=== PATIENT | male | born 1990 | race Caucasian/White ===

== ENCOUNTER 2020-05-09 01:36 | Emergency (ER) | payer OTHER ==
[2020-05-09 01:50] VITALS: RESP 18
[2020-05-09] MEDS ORDERED: SODIUM CHLORIDE 0.9% 1,000 ML IV STA (01:54)
[2020-05-09] MEDS ORDERED: LORazepam 2 MG/ML INJ IV STA (01:55)
[2020-05-09 02:19] LABS: Basophils # (A) 0.1 k/uL (0-0.2); Basophils % (A) 1 %; Eosinophils # (A) 0.2 k/uL (0-0.7); Eosinophils % (A) 2 %; HCT 46.4 % (39.0-53.0); HGB 15.2 gm/dL (13.0-17.5); Lymphocytes # (A) 3.8 k/uL (1.0-4.8); Lymphocytes % (A) 29 %; MCH 29.6 pg (25.0-35.0); MCHC 32.8 g/dL (31.0-37.0); MCV 90.1 fL (80.0-100.0); Mean Platelet Volume 6.6; Monocytes # (A) 0.9 k/uL (0-1.0); Monocytes % (A) 7 %; Neutrophils # (A) 7.9 k/uL (1.3-7.7); Neutrophils % (A) 60 %; Platelet Count 441 k/uL (150-450); RBC 5.15 m/uL (4.30-5.90); RDW 12.4 % (11.5-15.5); WBC 13.2 k/uL (3.8-10.6)
[2020-05-09 02:37] LABS: ALT 21 U/L (4-49); AST 28 U/L (17-59); Acetaminophen <10.0 ug/mL; African American GFR (CKD) >90 (>60 ml/min/1.73 sqM); Albumin 5.2 g/dL (3.5-5.0); Alcohol <10 mg/dL; Alkaline Phosphatase 75 U/L (38-126); Anion Gap 10 mmol/L; Blood Urea Nitrogen 15 mg/dL (9-20); Calcium 9.7 mg/dL (8.4-10.2); Carbon Dioxide 25 mmol/L (22-30); Chloride 102 mmol/L (98-107); Glucose 99 mg/dL (74-99); Non-African American GFR(CKD) >90 (>60 ml/min/1.73 sqM); Potassium 3.7 mmol/L (3.5-5.1); Salicylate <1.0 mg/dL; Sodium 137 mmol/L (137-145); Total Bilirubin 0.8 mg/dL (0.2-1.3); Total Protein 7.8 g/dL (6.3-8.2)
[2020-05-09 03:58] LABS: Amphetamine Screen,Urine Detected (NotDetected); Barbiturate Screen,Urine Not Detected (NotDetected); Benzodiazepines Screen,Urine Not Detected (NotDetected); Cocaine Screen,Urine Not Detected (NotDetected); Methadone Screen, Urine Not Detected (NotDetected); Opiate Screen,Urine Not Detected (NotDetected); Oxycodone Screen, Urine Not Detected (NotDetected); Phencyclidine Screen,Urine Not Detected (NotDetected); Tricyclic Antidepressant,Urine Not Detected (NotDetected); Urn Cannabinoid Scrn Detected (NotDetected)
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
[2020-05-09 05:36] VITALS: BP 141/90; PULSE 103; TEMP 98.2
== END 2020-05-09 05:37 | disposition home or self-care (01) ==
LOC: EC 01:36
DX: T50.901A Poisoning by unspecified drugs, medicaments and biological substances, accidental (unintentional), initial encounter (principal); Z79.899 Other long term (current) drug therapy; Z88.0 Allergy status to penicillin
CPT/HCPCS: 82075; 36415; 80053; 85025; 80306; 83520; 80329; 80320; 99284; 96374; J2060

== ENCOUNTER 2021-05-01 00:13 | Emergency (ER) | payer OTHER ==
[2021-05-01 00:20] VITALS: BP 137/72; TEMP 99
--- NOTE | 2021-05-01 00:34 | ED ---
Medical Clearance HPI - General Chief complaint: Medical Clearance Stated complaint: Halfway clearance Time Seen by Provider: 05/01/21 00:22 Source: patient, police, RN notes reviewed Mode of arrival: ambulatory - History of Present Illness Initial comments: Patient is a 31-year-old male that presents to the hospital with [employer] high on acid. Please note that there is no other medical concerns other than him being under the influence. Patient is otherwise a well- appearing 31-year-old male in no apparent distress or pain while sitting up in bed during exam and interview. He was unable to give accurate history due to his mental state. Home medications: Home Medications Medication Instructions Recorded Confirmed Dextroamphetamine/Amphetamine 60 mg PO DAILY 03/23/15 07/27/17 [Adderall] Previous Rx's Medication Instructions Recorded Clotrimazole Cream [Lotrimin Cream] 1 applic TOPICAL BID #1 tube 07/27/17 Allergies/Adverse reactions: Allergies Allergy/AdvReac Type Severity Reaction Status Date / Time Penicillins Allergy Unknown Verified 05/01/21 00:20 Childhood Review of Systems ROS Statement: Those systems with pertinent positive or pertinent negative responses have been documented in the HPI. ROS Other: All systems not noted in ROS Statement are negative. Past Medical History Past Medical History: No Reported History Additional Past Medical History / Comment(s): herpes History of Any Multi-Drug Resistant Organisms: None Reported Past Surgical History: No Surgical Hx Reported Past Psychological History: No Psychological Hx Reported Smoking Status: Current every day smoker Past Alcohol Use History: Occasional Past Drug Use History: Marijuana, Methamphetamine General Exam Limitations: no limitations General appearance: alert, in no apparent distress, appears intoxicated (Under the influence acid), other (Sweaty) Head exam: Present: atraumatic, normocephalic, normal inspection Eye exam: Present: normal appearance, PERRL, EOMI. Absent: scleral icterus, conjunctival injection, periorbital swelling Neck exam: Present: normal inspection Respiratory exam: Present: normal lung sounds bilaterally. Absent: respiratory distress, wheezes, rales, rhonchi, stridor Cardiovascular Exam: Present: regular rate, normal rhythm, normal heart sounds. Absent: systolic murmur, diastolic murmur, rubs, gallop, clicks Extremities exam: Present: normal inspection, full ROM, normal capillary refill. Absent: tenderness, pedal edema, joint swelling, calf tenderness Neurological exam: Present: alert, oriented X3 Skin exam: Present: warm, dry, intact, normal color. Absent: rash Course Vital Signs 05/01/21 00:18 Temperature 99 F Pulse Rate 143 H Respiratory 18 Rate Blood Pressure 137/72 O2 Sat by Pulse 98 Oximetry Medical Decision Making - Medical Decision Making 31-year-old male under the influence acid presenting with primary care on police. Physical exam was benign, patient is cleared for long-term. Case discussed with Dr. Pro, patient can be discharged. Disposition Clinical Impression: Substance abuse Disposition: HOME SELF-CARE Condition: Stable Instructions (If sedation given, give patient instructions): Medical Clearance for Substance Abuse Treatment (ED) Additional Instructions: Please return to the Emergency Department if symptoms worsen or any other concerns. Is patient prescribed a controlled substance at d/c from ED?: No Referrals: None,Stated [Primary Care Provider] - 1-2 days Time of Disposition: 00:33
[2021-05-01 19:48] VITALS: PULSE 136; RESP 24
== END 2021-05-01 00:31 | disposition home or self-care (01) ==
LOC: EC 00:13
DX: F19.10 Other psychoactive substance abuse, uncomplicated (principal); F17.200 Nicotine dependence, unspecified, uncomplicated; F12.90 Cannabis use, unspecified, uncomplicated; F15.90 Other stimulant use, unspecified, uncomplicated; Z79.899 Other long term (current) drug therapy
CPT/HCPCS: 99283

== ENCOUNTER 2021-11-15 20:32 | Emergency (ER) | payer OTHER ==
[2021-11-15 20:36] VITALS: BP 109/81; PULSE 101; RESP 16; TEMP 98
[2021-11-15] MEDS ORDERED: SODIUM CHLORIDE 0.9% 500 ML 500 ML IV STA (22:55)
[2021-11-15] MEDS ORDERED: ONDANSETRON 4 MG/2 ML VIAL IVP STA (22:55)
[2021-11-16 03:57] LABS: HCT 51.2 % (39.0-53.0); HGB 17.3 gm/dL (13.0-17.5); MCHC 33.8 g/dL (31.0-37.0); MCV 91.7 fL (80.0-100.0); Platelet Count 552 k/uL (150-450); RBC 5.59 m/uL (4.30-5.90); RDW 11.6 % (11.5-15.5); WBC 19.3 k/uL (3.8-10.6)
[2021-11-16 04:00] LABS: Band Neutrophils % 8 %; Eosinophils # (M) 0.39 k/uL (0-0.7); Lymphocytes # (M) 1.93 k/uL (1.0-4.8); Monocytes # (M) 1.54 k/uL (0-1.0); Neutrophils % (M) 72 %; Nucleated Red Blood Cells 0 /100 WBC (0-0); Total Cells Counted 100
[2021-11-16 04:26] LABS: Albumin 5.5 g/dL (3.5-5.0); Calcium 10.6 mg/dL (8.4-10.2); Potassium 4.4 mmol/L (3.5-5.1); Total Bilirubin 0.7 mg/dL (0.2-1.3); Total Protein 9.3 g/dL (6.3-8.2)
== END 2021-11-16 02:30 | disposition home or self-care (01) ==
LOC: EC 20:32
DX: K52.9 Noninfective gastroenteritis and colitis, unspecified (principal); E86.0 Dehydration
CPT/HCPCS: 99284 ×2; 96361 ×4; 96374 ×2; 36415; 80053; 82150; 83690; 85025; J2405